=== PATIENT | male | born 1985 | race Caucasian/White ===

== ENCOUNTER 2023-07-05 09:40 | Emergency (ER) | payer OTHER ==
[2023-07-05 10:01] VITALS: BP 134/89; PULSE 95; RESP 18; TEMP 99.2; BMI 28.8
[2023-07-05] MEDS ORDERED: ACETAMINOPHEN 325 MG TABLET (FP) ONE (10:11)
[2023-07-05] MEDS: ACETAMINOPHEN 325 MG TABLET (FP) PO ONE (10:15)
[2023-07-05] MEDS ORDERED: KETOROLAC TROMETHAMINE 15 MG/ML VIAL ONE (14:04)
== END 2023-07-05 11:16 | disposition home or self-care (01) ==
LOC: FER 09:40
DX: S00.83XA Contusion of other part of head, initial encounter (principal); S00.81XA Abrasion of other part of head, initial encounter; Y04.0XXA Assault by unarmed brawl or fight, initial encounter
CPT/HCPCS: 70450-TC; 70480-TC; 99284-25